=== PATIENT | male | born 1965 | race Caucasian/White ===

== ENCOUNTER 2018-03-29 12:36 | Emergency (ER) | payer MEDICARE ==
[~2018-03-29] VITALS: Ht 180.3 cm; Wt 138.0 kg
[2018-03-29] MEDS ORDERED: METF500T6 PO (12:53)
[2018-03-29 15:53] VITALS: BP 133/68
== END 2018-03-29 15:54 | disposition home or self-care (01) ==
LOC: ER 13:30
DX: I10 Essential (primary) hypertension (principal); E11.9 Type 2 diabetes mellitus without complications
CPT/HCPCS: 82962; 99283